=== PATIENT | female | born 1985 | race Caucasian/White ===

== ENCOUNTER 2022-06-17 12:17 | Emergency (ER) | payer BC, SELFPAY ==
[2022-06-17 12:39] VITALS: BP 143/79; PULSE 70; RESP 18; TEMP 36.3; O2SAT 100; BMI 32.6
--- NOTE | 2022-06-17 13:06 | ED_ITS ---
HPI - General Adult General Chief complaint: Extremity Pain/Injury, Lower Stated complaint: LT foot - fell last week Time Seen by Provider: 06/17/22 12:32 History of Present Illness HPI narrative: This 37-year-old female states that she sprained her ankle a week ago and did not have a lot of discomfort. She has been ambulating on it normally since then but comes in today stating that she has tingling sensation on the plantar surface of this left foot. She states that it is keeping her awake at night at times. She does not report any pain in her ankle currently. She does frequently go without shoes and has been wearing shoes more regularly now as this gives her some relief. She states that she does have hardwood floors at home and typically is not wearing shoes when ambulating on these floors. Related Data Previous Rx's Medication Instructions Recorded methylprednisolone 4 mg tablets in See Rx Instructions PO .COMPLEX 06/17/22 a dose pack (Medrol (Timmy)) #21 ea Allergies Allergy/AdvReac Type Severity Reaction Status Date / Time No Known Drug Allergies Allergy Verified 06/17/22 12:45 Review of Systems Status of ROS: Reports: 10 or more systems reviewed and unremarkable except as noted in History and below Narrative: Constitutional: No fevers, no weight gain or loss. Eyes: No discharge. No vision changes. HENT: No congestion, no sore throat, no ear pain. Cardiovascular: No chest pain, no palpitations. Respiratory: No shortness of breath, no wheezes, no cough. Gastrointestinal: No abdominal pain, no vomiting, no diarrhea. Genitourinary: No dysuria, no hematuria. Musculoskeletal: Normal range of motion. Skin: No rashes, no pruritis. Neurological: No dizziness, weakness, speech change. Tingling sensation in the plantar surface of her left foot. Endo/Heme/Allergies: No bruising or bleeding. No polydipsia. Pysch: no suicidality, no anxiety, no insomnia. All other systems reviewed and are negative. PFSH PFS Social History Smoking Status: Never smoker Do you use any of these nicotine containing products: None Second hand tobacco smoke exposure: No How often do you have a drink containing alcohol: never How often do you have six or more drinks on one occasion: Never AUDIT-C Alcohol total score: 0 Non-prescribed substance use: denies use service: No Exam Narrative: Exam Narrative: Constitutional: Well-developed, well-nourished, no acute distress. HEENT: Normocephalic, atraumatic. Neck: Normal range of motion. Nontender. Supple. Heart: Intact distal pulses. Lungs: No chest discomfort. No wheezes, rhonchi, or rales. Abdomen: Nontender. Back: Normal range of motion. Extremities: Normal range of motion. No injury. Left ankle sprain last week shows no tenderness or swelling currently. Plantar surface of the left foot appears normal but this is where she describes tingling sensation. Skin: Intact. No rash. Warm. No erythema or pallor. Neurologic: No altered sensation. No weakness. Alert and oriented. Psychiatric: No suicidality. No anxiety or depression. No insomnia. Nursing notes and vitals signs are reviewed. Const: Vital Signs, click to edit/add: Vital Signs - 24 hr 06/17/22 12:39 Temperature 97.3 F L Pulse Rate [Pulse Oximeter] 70 Respiratory Rate 18 Blood Pressure [Ri ght Upper Arm] 143/79 H Pulse Oximetry 100 Oxygen Delivery Me thod Room Air Course Vital Signs Vital signs: Initial Vital Signs Temperature 97.3 F L 06/17/22 12:39 Temperature Source Temporal Artery Scan 06/17/22 12:39 Pulse Rate 70 06/17/22 12:39 Pulse Rhythm 06/17/22 12:39 Respiratory Rate 18 06/17/22 12:39 Blood Pressure 143/79 H 06/17/22 12:39 Blood Pressure Mean 100 06/17/22 12:39 Blood Pressure Position Sitting 06/17/22 12:39 Pulse Oximetry 100 06/17/22 12:39 Oxygen Delivery Method 06/17/22 12:39 Vital Signs Temperature 97.3 F L 06/17/22 12:39 Pulse Rate 70 06/17/22 12:39 Respiratory Rate 18 06/17/22 12:39 Blood Pressure 143/79 H 06/17/22 12:39 Pulse Oximetry 100 06/17/22 12:39 Oxygen Delivery Method 06/17/22 12:39 Temperature 97.3 F L 06/17/22 12:39 Pulse Rate 70 06/17/22 12:39 Respiratory Rate 18 06/17/22 12:39 Blood Pressure 143/79 H 06/17/22 12:39 Pulse Oximetry 100 06/17/22 12:39 Oxygen Delivery Method 06/17/22 12:39 Medical Decision Making MDM Narrative Medical decision making narrative: This patient comes in with tingling sensation in the plantar surface of her left foot. This occurred after an ankle sprain last week. She has calluses on her feet and reports that she frequently is going without any shoes and has mostly hardwood floors at her home. I stated there are no imaging studies helpful or indicated at this time. She may have cause some increased inflammation and resultant pressure on the nerves in the area of her left ankle when she sprained it last week. Additionally she may be having symptoms indicating a need to wear footwear regularly. She is okay to be discharged home. She did receive a prescription for Medrol Dosepak. I advised her to follow-up with orthopedic clinic if not improving or worsening. Discharge Plan Discharge Clinical Impression: Paresthesias Patient Disposition: Home, Self-Care Condition: Unchanged Additional Instructions: Activity as tolerated. Is recommended to wear footwear at all times when ambulating. Take medication as indicated. Follow up with orthopedic clinic if worsening or not improving. Prescriptions: New methylprednisolone [Medrol (Timmy)] 4 mg tablets,dose pack See Rx Instructions .ROUTE .COMPLEX Qty: 21 0RF Rx Instructions: orally per package directions Stand Alone Forms: [employer] Info Instructions
== END 2022-06-17 13:26 | disposition home or self-care (01) ==
LOC: ED 13:16
PROVIDERS: Emergency Provider Emergency Medicine Emergency Medical Services
DX: R20.2 Paresthesia of skin (principal)
CPT/HCPCS: 99283; 99284

== ENCOUNTER 2022-07-01 14:12 | Emergency (ER) | payer BC, SELFPAY ==
[2022-07-01 14:39] VITALS: BP 151/79; PULSE 70; RESP 20; TEMP 36.6; O2SAT 99; BMI 32.6
--- NOTE | 2022-07-01 15:17 | ED.NURSE ---
Cat bite reported to [facility]. Will send out a deputy.
--- NOTE | 2022-07-01 16:03 | PC.NURSE ---
patient was seen by Jose Elias mccabe and encouraged to quarantine the 4 cats that all look a like to watch for 10 days to see if act any differently. The will follow up in 10 days and call the patient.
--- NOTE | 2022-07-01 16:09 | ED_ITS ---
HPI - Animal Bite General Time Seen by Provider: 16:09 Date Seen: 07/01/22 Chief Complaint: Animal Bite Stated Complaint: Cat bite L index finger Time Seen by Provider: 07/01/22 16:09 Source: patient and RN notes reviewed Mode of arrival: ambulatory Limitations: no limitations History of Present Illness HPI narrative: Patient is a very pleasant 37-year-old female with history of cat bite cellulitis 2 years ago that resulted in surgery in IV antibiotics who comes to the emergency room for evaluation of cat bite. Today of CT was chased up a tree and when patient tried to go and rescue it it bit her in the left index or 2nd finger. This CT is unvaccinated but can be quarantine. Patient notes that she is able to move her finger. Does not feel that the bite is significantly deep but of course is worried based on her previous experience. Tetanus up-to-date in 2020. Related Data Previous Rx's Medication Instructions Recorded doxycycline hyclate 100 mg capsule 100 mg PO BID #10 caps 07/01/22 Allergies Allergy/AdvReac Type Severity Reaction Status Date / Time No Known Drug Allergies Allergy Verified 06/17/22 12:45 Review of Systems Narrative: No other injury. No numbness or tingling. Is able to move finger. PFSH PFS Social History Smoking Status: Never smoker Do you use any of these nicotine containing products: None Second hand tobacco smoke exposure: No How often do you have a drink containing alcohol: never How often do you have six or more drinks on one occasion: Never AUDIT-C Alcohol total score: 0 Non-prescribed substance use: denies use service: No Exam Narrative: Exam Narrative: Alert and oriented. Very pleasant woman in no acute distress. Examination of her left index finger shows a puncture wound measuring approximately 1.5 mm on the lateral surface of the proximal phalanx 2nd finger. This is just proximal to the PIP joint. It appears to compromise epidermis and dermis but does not compromise subcutaneous tissue. Palpation does not reveal any underlying foreign body. On the opposite side of the finger there is a superficial puncture wound compromising only epidermis. No foreign bodies are noted. Patient has full extension and flexion of that finger. Sensation is fully intact. Const: Vital Signs, click to edit/add: Vital Signs - 24 hr 07/01/22 14:39 Temperature 97.8 F Pulse Rate [Pulse Oximeter] 70 Respiratory Rate 20 Blood Pressure [Ri ght Upper Arm] 151/79 H Pulse Oximetry 99 Oxygen Delivery Me thod Room Air Documenting provider has reviewed patient's vital signs: yes Course Course Hospital Course: Will irrigate wound in place patient on antibiotic. She states that Augmentin makes her sick to her stomach. Will look for an alternative. Vital Signs Vital signs: Initial Vital Signs Temperature 97.8 F 07/01/22 14:39 Temperature Source Temporal Artery Scan 07/01/22 14:39 Pulse Rate 70 07/01/22 14:39 Respiratory Rate 20 07/01/22 14:39 Blood Pressure 151/79 H 07/01/22 14:39 Blood Pressure Mean 103 07/01/22 14:39 Blood Pressure Position Sitting 07/01/22 14:39 Pulse Oximetry 99 07/01/22 14:39 Oxygen Delivery Method 07/01/22 14:39 Vital Signs Temperature 97.8 F 07/01/22 14:39 Pulse Rate 70 07/01/22 14:39 Respiratory Rate 20 07/01/22 14:39 Blood Pressure 151/79 H 07/01/22 14:39 Pulse Oximetry 99 07/01/22 14:39 Oxygen Delivery Method 07/01/22 14:39 Temperature 97.8 F 07/01/22 14:39 Pulse Rate 70 07/01/22 14:39 Respiratory Rate 20 07/01/22 14:39 Blood Pressure 151/79 H 07/01/22 14:39 Pulse Oximetry 99 07/01/22 14:39 Oxygen Delivery Method 07/01/22 14:39 MDM - Animal Bite MDM Narrative Medical decision making narrative: 1. Cat bite-this is superficial does not appear to compromise subcutaneous tissue are and the underlying structures. This wound was irrigated. Patient will be placed on doxycycline 100 mg p.o. b.i.d. x5 days. I have asked patient to be vigilant about watching for any increasing erythema or drainage. She needs to seek medical attention i as soon as possible if this should happen. Ibuprofen or Tylenol as needed for pain. In regards to the CT, [facility] has asked patient to quarantine cats and will be following up with her on an outpatient basis. 2. Disposition-patient is discharged home. Return for worsening symptoms and as needed. Medical Records Attestation: I reviewed the patient's medical records. Discharge Plan Discharge Clinical Impression: Bite by animal Patient Disposition: Home, Self-Care Condition: Improved Additional Instructions: Start doxycycline today for antibiotic. You will take this medication twice a day for 5 days. Please seek medical attention if you notice increasing redness, drainage, fever or worsening symptoms. Quarantine cats as per [facility] deputy. If they are behaving strangely, we need to know quickly. Prescriptions: New doxycycline hyclate 100 mg capsule 100 mg PO BID Qty: 10 0RF Follow Up/Referrals: Provider,Not a Local [Primary Care Provider] - Stand Alone Forms: [employer] Info Instructions
--- NOTE | 2022-07-01 16:13 | ED.NURSE ---
[facility]
== END 2022-07-01 16:37 | disposition home or self-care (01) ==
PROVIDERS: Emergency Provider Family Medicine
DX: S61.331A Puncture wound without foreign body of left index finger with damage to nail, initial encounter (principal); W55.01XA Bitten by cat, initial encounter
CPT/HCPCS: 99283